=== PATIENT | female | born 1955 | race Caucasian/White ===

== ENCOUNTER 2017-02-03 06:35 | Emergency (ER) | payer MEDICARE ==
[~2017-02-03] VITALS: Ht 154.9 cm; Wt 71.4 kg
[2017-02-03 07:36] LABS: HEMATOCRIT 38.3 % (36.0-46.0); MCH 30.8 PG (29.0-34.0); MCHC 33.2 G/DL (30.0-36.0); MCV 92.7 FL (83-99); MEAN PLAT.VOLUME 9.7 uM^3 (9.5-12.4); PLATELET COUNT 298 K/uL (156-360); RBC DIS.WIDTH-CV 12.9 % (11.8-14.6); RBC DIS.WIDTH-SD 43.6 % (39-53); RED BLOOD COUNT 4.13 M/uL (3.80-5.20); WHITE BLOOD COUNT 17.9 K/uL (4.1-10.2)
[2017-02-03 08:09] LABS: CHLORIDE 107 mEq/L (99-109); POTASSIUM 4.1 mEq/L (3.7-5.4); SODIUM 141 mEq/L (136-147)
[2017-02-03 08:11] LABS: GLUCOSE 252 mg/dL (70-99)
[2017-02-03 08:12] LABS: ANION GAP 12 MEQ/L (2-14)
[2017-02-03 08:15] LABS: GFR ESTIMATE (CALCULATED) 49 mL/min/
[2017-02-03 08:16] LABS: UREA NITROGEN (BUN) 18 mg/dL (9-23)
[2017-02-03 08:28] LABS: ADD MIUA? YES; BILIRUBIN NEGATIVE; BLOOD SMALL; COLOR YELLOW ((YELLOW)); GLUCOSE (STRIP) >=500; KETONES NEGATIVE; LEUKOCYTES NEGATIVE; NITRITE NEGATIVE; PROTEIN (STRIP) NEGATIVE; SPECIFIC GRAVITY 1.024 (1.000-1.030); UROBILINOGEN 0.2 MG/DL (0.2-1.0)
[2017-02-03 08:48] LABS: EPITHELIAL CELLS RARE /HPF; WHITE BLOOD CELLS 0-5 /HPF (0-5)
[2017-02-03 08:49] LABS: BACTERIA RARE /HPF; MUCUS RARE /LPF; UCUL ADDED? NO
[2017-02-03] MEDS ORDERED: PERCOCET 5/31 TABLET PO (09:15)
[2017-02-03] MEDS ORDERED: ZOFRAN4 MG PO (09:15)
[2017-02-03 09:27] VITALS: BP 170/92
== END 2017-02-03 09:27 | disposition home or self-care (01) ==
LOC: EME 06:35
PROVIDERS: Emergency Medicine
DX: N13.2 Hydronephrosis with renal and ureteral calculous obstruction (principal); E11.9 Type 2 diabetes mellitus without complications; Z87.442 Personal history of urinary calculi
CPT/HCPCS: 74176; 80048; 81003; 85027; 99281; 99285; J1885; J2405; J7030